=== PATIENT | male | born 1990 | race African-American/Black ===

== ENCOUNTER 2021-12-27 13:09 | Emergency (ER) | payer MEDICAID, OTHER ==
[~2021-12-27] VITALS: Ht 162.6 cm; Wt 71.0 kg
[2021-12-27 13:14] VITALS: BP 164/122
[2021-12-27 15:23] LABS: BASOPHILS % 0.3 % (0.0-2.0); EOSINOPHILS % 3.4 % (0.0-5.0); HEMATOCRIT. 43.2 % (42.0-52.0); HEMOGLOBIN. 14.6 g/dL (14.0-18.0); LYMPHOCYTES % 25.8 % (20.0-50.0); MEAN CORPUSCULAR HEMOGLOBIN 31.6 pg (28.0-32.0); MEAN CORPUSCULAR VOLUME 93.2 fL (80.0-94.0); MEAN PLATELET VOLUME 9.7 fl (7.4-10.4); MONOCYTES % 11.5 % (2.0-8.0); PLATELET 182 x1000/uL (130-400); RED BLOOD CELL COUNT 4.64 mill/uL (4.7-6.1); RED CELL DISTRIBUTION WIDTH 15.4 % (11.6-14.6)
[2021-12-27 15:32] LABS: CHLORIDE 107 mEq/L (98-107); PROTHROMBIN TIME 11.1 sec (9.6-11.0)
[2021-12-27] MEDS ORDERED: DOXY100C5 MT (17:53)
[2021-12-27] MEDS ORDERED: NAP5EC MT (17:53)
[2021-12-27] MEDS ORDERED: CEFTRIAXONE SODIUM 500 MG/VIAL IM ONE (18:00)
== END 2021-12-27 19:25 | disposition home or self-care (01) ==
LOC: ER 13:09
DX: N45.1 Epididymitis (principal); I10 Essential (primary) hypertension
CPT/HCPCS: 36415; 76870; 80053; 85025; 93976; 99284

== ENCOUNTER → 2022-01-11 | Emergency (ER) | payer OTHER ==
[~2022-01-11] VITALS: Ht 162.6 cm; Wt 68.0 kg
[~2022-01-11] MED LIST: AMOX-494 MT; DOXY100C5 MT; NAP5EC MT
[2022-01-11 17:13] VITALS: BP 122/75
== END ==
LOC: ER 15:10
DX: J18.9 Pneumonia, unspecified organism (principal); R05.9 Cough, unspecified; R06.02 Shortness of breath
CPT/HCPCS: 71045; 99283

== ENCOUNTER 2022-04-11 17:01 | Emergency (ER) | payer OTHER ==
[~2022-04-11] VITALS: Ht 175.3 cm; Wt 79.0 kg
[2022-04-11 17:17] VITALS: BP 167/118
== END 2022-04-11 20:43 | disposition left against medical advice (07) ==
LOC: ER 17:01
DX: Z53.21 Procedure and treatment not carried out due to patient leaving prior to being seen by health care provider (principal)

== ENCOUNTER 2022-04-22 06:32 | Emergency (ER) | payer OTHER ==
[~2022-04-22] VITALS: Ht 165.1 cm; Wt 62.0 kg
[2022-04-22 06:40] VITALS: BP 142/92
== END 2022-04-22 06:45 | disposition home or self-care (01) ==
LOC: ER 06:32
DX: Z02.89 Encounter for other administrative examinations (principal); I11.0 Hypertensive heart disease with heart failure; I50.9 Heart failure, unspecified
CPT/HCPCS: 99281; 99283